=== PATIENT | male | born 1935 | race Caucasian/White ===

== ENCOUNTER 2017-04-26 22:59 | Emergency (ER) | payer MEDICARE ==
[2017-04-26] MEDS ORDERED: NS(*) 0.9% 1000 ML BAG 1,000 ML IV ONE (23:16)
--- NOTE | 2017-04-26 23:16 | ER Report ---
History and Physical Time Seen By MD: 23:11 Hx. of Stated Complaint: PT HAS RECTAL BLEEDING THAT STARTED LAST NIGHT. PT SAW SANDRA CENTENO TODAY TO DO BLOOD WORK. PT WOKE UP TO POOL OF BLOOD ON BED. HPI/ROS CHIEF COMPLAINT: Rectal bleeding HISTORY OF PRESENT ILLNESS: 82-year-old male presents ambulatory to the ER with a large pool of blood from his rectum tonight. Patient was seen earlier today by his primary care physician. He was referred for general surgery for colonoscopy. Blood work was drawn. His H&H was 17 and 49 Patient states he had a colonoscopy 5 years ago. There were a few polyps that were noted. Patient takes an baby aspirin a day. Patient notes a mild dizziness. On arrival he is noted be tachycardic at 122. Patient states a history of hemorrhoids. He's had no bleeding for 10 years. REVIEW OF SYSTEMS: Respiratory: No cough, no dyspnea. Cardiovascular: No chest pain, no palpitations. Gastrointestinal: As above Musculoskeletal: No back pain. Allergies: Coded Allergies: simvastatin (Verified Adverse Reaction, Mild, Muscle Pain, 04/26/17) Home Meds Active Scripts Omeprazole (OMEPRAZOLE) 20 Mg Capsule.dr, 1 CAP PO BID for 30 Days, #60 CAP 0 Refills Prov:SANDRA CENTENO DNP, CUSTOMER SUPPORT TECHNICIAN-BC 04/26/17 Reported Medications Doxylamine Succinate (SLEEP AID) 25 Mg Tablet, 0.5 TAB PO QHS 06/29/16 Melatonin (MELATONIN) 1 Mg Tablet, 1 MG PO QHS 06/29/16 Discontinued Reported Medications Aspirin (ASPIRIN) 81 Mg Tab.chew, 81 MG PO QDAY, TAB.CHEW 06/29/16 Past Medical/Surgical History Past Medical History Cardiovascular: Reports hx of: hyperlipidemia Hematology/oncology: Reports hx of: prostate cancer Past Surgical History Gastrointestinal: Reports hx of: hernia repair Genitourinary: Reports hx of: prostatectomy Musculoskeletal: Reports hx of: spinal surgery (herniated disc) Reviewed Nurses Notes: Yes Old Medical Records Reviewed: Yes Smoking Status: Never Smoker Hx Substance Use Disorder: No Hx Alcohol Use: No Constitutional Vital Sign - Last 24 Hours 04/26/17 04/26/17 04/26/17 04/26/17 23:05 23:06 23:13 23:14 Temp 97.5 Pulse 122 100 103 Resp 18 B/P (MAP) 143/99 143/99 (114) 117/83 (94) 117/83 (94) Pulse Ox 93 93 92 O2 Delivery Room Air Room Air 04/26/17 04/26/17 04/26/17 04/26/17 23:15 23:15 23:17 23:17 Pulse 114 124 B/P (MAP) 126/78 (94) 126/78 (94) 118/61 (80) 118/61 (80) Pulse Ox 94 94 O2 Delivery Room Air Room Air 04/26/17 04/26/17 04/26/17 04/26/17 23:30 23:44 23:45 23:59 Pulse 99 110 B/P (MAP) 122/82 (95) 121/79 (93) Pulse Ox 92 94 04/27/17 04/27/17 04/27/17 04/27/17 00:00 00:20 00:30 00:50 Pulse 106 109 B/P (MAP) 137/90 (106) 136/86 (103) Pulse Ox 93 96 Physical Exam Vital signs stable, orthostatics positive. Patient has increase of heart rate from 100-124 with standing BP remains the same at approximately 120 systolic General Appearance: The patient is alert, has no immediate need for airway protection and no current signs of toxicity. Skin warm, dry, pink, no acute distress HEENT: Pupils equal and round no injection. Oropharynx without redness or exudate Respiratory: Chest is non tender, lungs are clear to auscultation. Cardiac: regular rate and rhythm Gastrointestinal: Abdomen is soft and non tender, no masses, bowel sounds normal. Musculoskeletal: Neck: Neck is supple and non tender. No JVD, no lymphadenopathy Extremities have full range of motion and are non tender. Skin: No rashes or lesions. DIFFERENTIAL DIAGNOSIS: After history and physical exam differential diagnosis was considered for lower GI bleeding including but not limited to diverticulosis , tumor, AVM, hemorrhoid and anal fissure. Additionally, acute non-STEMI Medical Decision Making Data Points Result Diagram: 04/26/17232404/26/172324 Laboratory Hematology Test 04/26/17 23:25 Red Blood Count 4.75 M/uL (4.00-5.60) Mean Corpuscular Volume 92.1 fL (80.0-96.0) Mean Corpuscular Hemoglobin 32.2 pg (26.0-33.0) Mean Corpuscular Hemoglobin Concent 35.0 g/dL (32.0-36.0) Red Cell Distribution Width 13.6 % (11.5-14.5) Mean Platelet Volume 7.2 fL (7.2-11.1) Neutrophils (%) (Auto) 65.3 % (39.4-72.5) Lymphocytes (%) (Auto) 23.3 % (17.6-49.6) Monocytes (%) (Auto) 8.6 % (4.1-12.4) Eosinophils (%) (Auto) 1.7 % (0.4-6.7) Basophils (%) (Auto) 1.1 % (0.3-1.4) Nucleated RBC Relative Count (auto) 0.0 /100WBC Neutrophils # (Auto) 9.1 K/uL (2.0-7.4) Lymphocytes # (Auto) 3.3 K/uL (1.3-3.6) Monocytes # (Auto) 1.2 K/uL (0.3-1.0) Eosinophils # (Auto) 0.2 K/uL (0.0-0.5) Basophils # (Auto) 0.2 K/uL (0.0-0.1) Nucleated RBC Absolute Count (auto) 0.00 K/uL Prothrombin Time 13.6 seconds (12.0-14.4) Prothromb Time International Ratio 1.04 Activated Partial Thromboplast Time 29 seconds (23-35) Sodium Level 138 mmol/L (137-145) Potassium Level 3.8 mmol/L (3.5-5.0) Chloride Level 106 mmol/L (98-107) Carbon Dioxide Level 17 mmol/L (22-30) Blood Urea Nitrogen 16 mg/dl (9-21) Creatinine 1.00 mg/dl (0.66-1.25) Glomerular Filtration Rate Calc > 60.0 Random Glucose 138 mg/dl (75-110) Lactate 2.1 mmol/L (0.7-2.1) Calcium Level 9.0 mg/dl (8.4-10.2) Total Bilirubin 0.6 mg/dl (0.2-1.3) Aspartate Amino Transf (AST/SGOT) 64 U/L (0-35) Alanine Aminotransferase (ALT/SGPT) 30 U/L (0-56) Alkaline Phosphatase 71 U/L (0-126) Troponin I 6.400 ng/ml Total Protein 7.2 gm/dl (6.3-8.2) Albumin 3.8 g/dl (3.5-5.0) Amylase Level 82 U/L (0-110) Lipase 87 U/L (23-300) Chemistry Test 04/26/17 23:25 White Blood Count 14.0 k/uL (4.5-11.0) Red Blood Count 4.75 M/uL (4.00-5.60) Hemoglobin 15.3 g/dL (14.0-18.0) Hematocrit 43.7 % (42.0-52.0) Mean Corpuscular Volume 92.1 fL (80.0-96.0) Mean Corpuscular Hemoglobin 32.2 pg (26.0-33.0) Mean Corpuscular Hemoglobin Concent 35.0 g/dL (32.0-36.0) Red Cell Distribution Width 13.6 % (11.5-14.5) Platelet Count 281 K/uL (150-450) Mean Platelet Volume 7.2 fL (7.2-11.1) Neutrophils (%) (Auto) 65.3 % (39.4-72.5) Lymphocytes (%) (Auto) 23.3 % (17.6-49.6) Monocytes (%) (Auto) 8.6 % (4.1-12.4) Eosinophils (%) (Auto) 1.7 % (0.4-6.7) Basophils (%) (Auto) 1.1 % (0.3-1.4) Nucleated RBC Relative Count (auto) 0.0 /100WBC Neutrophils # (Auto) 9.1 K/uL (2.0-7.4) Lymphocytes # (Auto) 3.3 K/uL (1.3-3.6) Monocytes # (Auto) 1.2 K/uL (0.3-1.0) Eosinophils # (Auto) 0.2 K/uL (0.0-0.5) Basophils # (Auto) 0.2 K/uL (0.0-0.1) Nucleated RBC Absolute Count (auto) 0.00 K/uL Prothrombin Time 13.6 seconds (12.0-14.4) Prothromb Time International Ratio 1.04 Activated Partial Thromboplast Time 29 seconds (23-35) Glomerular Filtration Rate Calc > 60.0 Lactate 2.1 mmol/L (0.7-2.1) Calcium Level 9.0 mg/dl (8.4-10.2) Total Bilirubin 0.6 mg/dl (0.2-1.3) Aspartate Amino Transf (AST/SGOT) 64 U/L (0-35) Alanine Aminotransferase (ALT/SGPT) 30 U/L (0-56) Alkaline Phosphatase 71 U/L (0-126) Troponin I 6.400 ng/ml Total Protein 7.2 gm/dl (6.3-8.2) Albumin 3.8 g/dl (3.5-5.0) Amylase Level 82 U/L (0-110) Lipase 87 U/L (23-300) Coagulation Test 04/26/17 23:25 Prothrombin Time 13.6 seconds Prothromb Time International Ratio 1.04 Activated Partial Thromboplast Time 29 seconds EKG/Imaging EKG Interpretation 12 lead EK Rhythm: Sinus tachycardia, rate 110 bpm [place]: normal QRS: normal, old anterior Q waves, ST segments: No evidence of ischemia, there are no old EKGs for comparison Imaging Single view portable chest x-ray, no effusion, no infiltrate, normal mediastinum ED Course/Re-evaluation Clinical Indication for ER IV: Hydration, IV Access ED Course Patient was admitted to an examination room. H&P was done. The differential diagnoses was considered. On clinical examination. Patient is mildly orthostatic on evaluation. He is asymptomatic otherwise except slightly dizzy with standing. He's had no chest pain or shortness of breath. His EKG shows no evidence of acute ischemia. There appearing Q waves in V1 through V3. Patient's H&H has dropped from 17 and 49-15 and 43. He is treated with 1 L of normal saline IV. He takes a baby aspirin 81 mg per day. Unfortunately, his troponin returned elevated at 6.4. He's having acute ischemia. He'll be transferred to [facility] [place] so the mucosa monitored by cardiology along with hospitalist and GI. He needs a higher level of care than is available at our facility. 04/27/2017 12:19:13 am case was discussed with Dr. Javier hospitalist, and Dr. Farr cardiology at [facility] who accepted the patient for transfer to their facility. Decision to Disposition Date: Apr 26, 2017 Decision to Disposition Time: 23:53 Critical Care Time I spent a total of 60 minutes of critical care time in obtaining history, performing a physical exam, bedside monitoring of interventions, collecting and interpreting tests and discussion with consultants but not including time spent performing procedures. Depart Departure Latest Vital Signs Vital Signs Date Time Temp Pulse Resp B/P (MAP) Pulse Ox O2 Delivery O2 Flow Rate FiO2 04/27/17 00:50 109 96 04/27/17 00:30 136/86 (103) 04/26/17 23:17 Room Air 04/26/17 23:05 97.5 18 Impression: Primary Impression: Non-STEMI (non-ST elevated myocardial infarction) Additional Impressions: Lower GI bleed History of prostate cancer Condition: Improved Disposition: XFER TO ACUTE CARE HOSPITAL Referrals: SANDRA CENTENO DNP, CUSTOMER SUPPORT TECHNICIAN-BC (PCP) Problem Qualifiers JOHN GARCIA DO Apr 26, 2017 23:16
[2017-04-26 23:35] LABS: PLATELET COUNT, AUTOMATED 281 K/uL (150-450)
[2017-04-26 23:47] LABS: INR 1.04
--- NOTE | 2017-04-27 00:12 | EKG ---
FACILITY: [facility] [place] PATIENT NAME: BREN MATTSON : [id number] MR: [id number] V: [id number] EXAM DATE: ORDERING PHYSICIAN: JOHN GARCIA TECHNOLOGIST: SOO Test Reason : CARDIAC Blood Pressure : / mmHG Vent. Rate : 110 BPM Atrial Rate : 110 BPM P-R Int : 152 ms QRS Dur : 088 ms QT Int : 344 ms P-R-T Axes : 060 005 095 degrees QTc Int : 465 ms Sinus tachycardia Possible Left atrial enlargement Anterior infarct , age undetermined Abnormal ECG No previous ECGs available Confirmed by MARIIA LAGUNA ([id number]) on 04/27/2017 6:48:41 AM Referred By: Confirmed By:MARIIA LAGUNA
[2017-04-27] MEDS ORDERED: PANTOPRAZOLE SOD(*)40 MG VIAL 80 MG in NS(*) 0.9% 100 ML BAG 100 ML IVPB ONE (00:20)
[2017-04-27 00:30] VITALS: BP 136/86
--- NOTE | 2017-04-27 00:38 | RADIOLOGY IMAGING REPORT ---
FACILITY: [facility] [place] PATIENT NAME: Rubén [place] : 1935 MR: [id number] V: [id number] EXAM DATE: ORDERING PHYSICIAN: JOHN GARCIA TECHNOLOGIST: Location: [facility] [place] Patient: Rubén [place]orado : 1935 Visit/Account:[id number] Date of Sevice: 04/27/2017 PORTABLE CHEST: Indication: Chest pain. Technique: A single frontal film was obtained. Comparison: None. Skeletal and soft tissue structures: Intact and unremarkable. Heart and mediastinum: Within normal limits. Lung salazar: Well-expanded and clear. No evidence of vascular congestion. Pleural spaces: Unremarkable. Impression: No acute process. Report Dictated By: Benigno Sethi MD at 04/27/2017 12:31 AM Report E-Signed By: Benigno Sethi MD at 04/27/2017 12:33 AM WSN:[id number]
== END 2017-04-27 01:00 | disposition short-term general hospital (02) ==
LOC: ER 23:46
DX: I21.4 Non-ST elevation (NSTEMI) myocardial infarction (principal); K92.2 Gastrointestinal hemorrhage, unspecified; Z85.46 Personal history of malignant neoplasm of prostate
CPT/HCPCS: 71045; 82150; 83605; 83690; 84484; 85025; 85610; 85730; 93005; 96361; 96365; 99291; C9113; J7030; J7050; 82040; 82247; 82310; 82374; 82435; 82565; 82947; 84075; 84132; 84155; 84295; 84450; 84460; 84520; 99285

== ENCOUNTER → 2017-04-26 | Outpatient (CLI) | payer MEDICARE ==
[~2017-04-26] MED LIST: ASPI81TA94 PO; DOXY25TA11 PO; MELA1TAB23 PO; OMEP-125 PO
[2017-04-26 15:18] LABS: PLATELET COUNT, AUTOMATED 296 K/uL (150-450)
== END ==
LOC: LAB 14:53
PROVIDERS: ATTEND Nurse Practitioner Primary Care
DX: K92.1 Melena (principal); Z85.46 Personal history of malignant neoplasm of prostate
CPT/HCPCS: 36415; 82040; 82247; 82310; 82374; 82435; 82565; 82728; 82947; 83540; 83550; 84075; 84132; 84153; 84155; 84295; 84450; 84460; 84520; 85025

== ENCOUNTER → 2017-04-27 | Outpatient (CLI) | payer MEDICARE | LOC: AMB 00:46 | PROVIDERS: ATTEND Nurse Practitioner | DX: K92.2 Gastrointestinal hemorrhage, unspecified (principal); R53.1 Weakness | CPT/HCPCS: A0425; A0426 ==

== ENCOUNTER → 2017-05-04 | Outpatient (CLI) | payer MEDICARE ==
[2017-05-04 10:42] LABS: PLATELET COUNT, AUTOMATED 354 K/uL (150-450)
== END ==
LOC: LAB 10:23
PROVIDERS: ATTEND Nurse Practitioner Primary Care
DX: K92.2 Gastrointestinal hemorrhage, unspecified (principal)
CPT/HCPCS: 36415; 82040; 82247; 82310; 82374; 82435; 82565; 82947; 84075; 84132; 84155; 84295; 84450; 84460; 84520; 85025

== ENCOUNTER → 2017-05-26 | Outpatient (CLI) | payer MEDICARE ==
[2017-05-26 10:17] LABS: INR 1.01
== END ==
LOC: LAB 09:44
PROVIDERS: ATTEND Internal Medicine Cardiovascular Disease
DX: I21.4 Non-ST elevation (NSTEMI) myocardial infarction (principal)
CPT/HCPCS: 36415; 82310; 82374; 82435; 82565; 82947; 84132; 84295; 84520; 85027; 85610

== ENCOUNTER → 2017-05-27 | Outpatient (CLI) | payer MEDICARE ==
--- NOTE | 2017-05-27 10:51 | EKG ---
[place] [facility] [place] NAME: BREN MATTSON : [id number] MR: [id number] V: [id number] EXAM DATE: ORDERING PHYSICIAN: ARUN VELEZ TECHNOLOGIST: ALEK Test Reason : NSTEMI Blood Pressure : / mmHG Vent. Rate : 102 BPM Atrial Rate : 102 BPM P-R Int : 154 ms QRS Dur : 094 ms QT Int : 346 ms P-R-T Axes : 062 050 085 degrees QTc Int : 450 ms Sinus tachycardia Possible Left atrial enlargement Septal infarct (cited on or before 26-APR-2017) ST and T wave abnormality, consider lateral ischemia Abnormal ECG When compared with ECG of 26-APR-2017 23:17, Questionable change in initial forces of Anteroseptal leads T wave inversion more evident in Lateral leads Confirmed by ARUN VELEZ ([id number]) on 05/27/2017 12:12:00 PM Referred By: theo loredo Confirmed By:ARUN VELEZ
--- NOTE | 2017-05-27 10:53 | RADIOLOGY IMAGING REPORT ---
FACILITY: [facility] [place] PATIENT NAME: Rubén [place] : 1935 MR: [id number] V: [id number] EXAM DATE: ORDERING PHYSICIAN: REESE LAN TECHNOLOGIST: Location: [facility] Patient: Rubén [place] : 1935 Visit/Account:[id number] Date of Sevice: 05/27/2017 CHEST PA AND LAT Indication: Preoperative Comparison: Chest x-ray 04/27/2017. Findings: Lungs: Clear. Mediastinum/pulmonary vasculature: Heart size and pulmonary vasculature are normal. Bones/soft tissues: Normal. IMPRESSION: Clear lungs. Report Dictated By: Gerry Rowland at 05/27/2017 10:47 AM Report E-Signed By: Gerry Rowland at 05/27/2017 10:48 AM WSN:[id number]
== END ==
LOC: RAD 10:21
PROVIDERS: ATTEND Internal Medicine Cardiovascular Disease
DX: Z01.812 Encounter for preprocedural laboratory examination (principal); Z01.810 Encounter for preprocedural cardiovascular examination; R00.0 Tachycardia, unspecified; Q21.0 Ventricular septal defect; R94.30 Abnormal result of cardiovascular function study, unspecified; I21.4 Non-ST elevation (NSTEMI) myocardial infarction
CPT/HCPCS: 71046; 93005

== ENCOUNTER → 2017-06-10 | Outpatient (CLI) | payer MEDICARE ==
[~2017-06-10] MED LIST changes: +ENOX40DI9 SQ; +ENOX80DI10 SQ; +FURO-45 PO; +METO25TA91 PO; +POTA-23 PO; +PRAV40TA78 PO; +WARF1TAB15 PO; +WARF5TAB23 PO
== END ==
LOC: LAB 09:48
PROVIDERS: ATTEND Internal Medicine Cardiovascular Disease
DX: I23.6 Thrombosis of atrium, auricular appendage, and ventricle as current complications following acute myocardial infarction (principal); I50.22 Chronic systolic (congestive) heart failure
CPT/HCPCS: 36415; 82310; 82374; 82435; 82565; 82947; 84132; 84295; 84520; 85027

== ENCOUNTER → 2017-08-08 | Outpatient (CLI) | payer MEDICARE | LOC: LAB 09:29 | PROVIDERS: ATTEND Internal Medicine Cardiovascular Disease | DX: I50.9 Heart failure, unspecified (principal) | CPT/HCPCS: 36415; 82310; 82374; 82435; 82565; 82947; 84132; 84295; 84520 ==

== ENCOUNTER → 2017-10-24 | Outpatient (CLI) | payer MEDICARE ==
[~2017-10-24] MED LIST changes: +LISI-362 PO
[2017-10-24 10:31] LABS: INR 2.74
== END ==
LOC: LAB 10:12
PROVIDERS: ATTEND Internal Medicine
DX: Z51.81 Encounter for therapeutic drug level monitoring (principal)
CPT/HCPCS: 36415; 85610

== ENCOUNTER → 2017-11-15 | Outpatient (CLI) | payer MEDICARE ==
[2017-11-15 10:32] LABS: INR 2.22
== END ==
LOC: LAB 09:56
PROVIDERS: ATTEND Nurse Practitioner Primary Care
DX: I25.10 Atherosclerotic heart disease of native coronary artery without angina pectoris (principal)
CPT/HCPCS: 36415; 85610

== ENCOUNTER → 2017-12-23 | Outpatient (CLI) | payer MEDICARE ==
[2017-12-23 11:28] LABS: INR 2.49
== END ==
LOC: LAB 11:09
PROVIDERS: ATTEND Nurse Practitioner Primary Care
DX: I25.10 Atherosclerotic heart disease of native coronary artery without angina pectoris (principal)
CPT/HCPCS: 36415; 85610

== ENCOUNTER → 2018-02-06 | Outpatient (RCR) | payer MEDICARE ==
[2017-11-08 15:05] VITALS: BP 130/82
[2017-11-08 15:06] VITALS: BP 112/70
--- NOTE | 2017-11-08 15:39 | CARDIAC REHAB PLAN OF CARE ---
Physician: aMry Tabor NP Patient is being seen: Rin De La Garza Medical Diagnosis: CHF; CAD; ICD Date of Onset: 10/27/17 Date of Initial Evaluation: 11/08/17 INTERVENTIONS: Due Date: 12/09/17 Short Term Goals: Patient Assessment: Patient is an 82yr old male who comes to cardiac rehab following ICD placement on 10/27/17. He has a history of a NSTEMI, the date of which he is unaware, and has been diagnosed with pulmonary hypertension and CHF. His LVEF is 20-25%. Exercise Assessment: During his 6-Minute Walk Test the patient walked a total of 1500ft for an average speed of 2.8mph. He did not report any discomfort, angina, or shortness of breath during the test. ECG was sinus tachycardia with a HR between 108-113bpm. SPO2 remained above 91% and RPE was reported 3-4. For exercise equipment, the patient chose both the upright stationary bike and NuStep. HR remained between 110-120bpm with ECG in sinus tachycardia. SPO2 remained above 92% and RPE was reported at 3 on both machines. BP response was normal, increasing to 132/78. No discomfort was reported by the patient. METS reported at 3.5 on average. Exercise Plan: Goals: Our goals are to help promote healthy behavior change via increasing structured exercise volume and leisure time activity. By the end of the 3 month program the patient will aim to be exercising at cardiac rehab 3 days/week (MWF) for at least 45 minutes/session of moderate intensity cardiovascular activity. His goal will be to reach 5.5 METs on average or higher. Our other goal will be to increase leisure time activity (currently walking ~1 mile a few days/week) by increasing walking time at home and or using his stationary bike at home on days off. Exercise Prescription: Mode: Upright stationary bike and NuStep Frequency: 3 days/week (MWF) Duration: Patient will start exercising for 30 minutes on average per session Intensity: THR 110-120bpm; METs 3.5 Education: Education will be aimed towards the importance of gradual progression for increasing overall physical fitness as well as increasing intensity during leisure time activities at home Exercise Reassessment (Date: ): Exercise Discharge/Follow-Up (Date: ): Nutrition Assessment: Patient reports eating a relatively healthy diet (his does most of the cooking). His diet is low in refined carbohydrates and high in lean meats and vegetables. He eats oatmeal regularly and eats fish on average 2 days/week. Nutrition Plan: Goals: Our goals are to maintain healthy habits and help educate the patient on the importance of healthy fats and whole grains as part of a well-rounded diet. Intervention: Intervention will include providing education and frequent conversation about healthy dietary changes. Education: Education will focus on healthy recipes and nutritional guideline information Nutrition Reassessment (Date: ): Nutrition Discharge/Follow-Up (Date: ): Psychosocial Assessment: While the patient does not meet the criteria for moderate level depression or anxiety according to the Hospital Anxiety and Depression Scale (HADS) I do perceive that he is at risk for developing such qualities. He does report worrying frequently and rather restless. While he does report that this has significantly lessened over the past year, it is apparent in his mannerisms and self-reports. Psychosocial Plan: Goals: Our goals are help the patient become self-aware of his stress levels and help him discover a healthy way to cope and manage when stressful times arise. He appears to have a strong support system at home so it would be best if we could assist this with the help of his and children here in town. Intervention: Our intervention will first start with regular conversations to see where his stress levels are and to see his cognitive awareness of it. We will also help him to pin point what exactly is causing such stress and help him address those areas through coping and management methods. Lastly, we will continuously be a strong support system for him, helping to point out the optimistic and improvements seen while he attends cardiac rehab. Education: Education will focus on stress relieving methods and positivity. Psychosocial Reassessment (Date: ): Psychosocial Discharge/Follow-Up (Date: ): Physician Signature: Date: MTDD
[2017-11-14 17:51] VITALS: BP 104/68
[2017-11-14 17:52] VITALS: BP 94/60
[2017-11-23 13:18] VITALS: BP_SYST 102; BP_SYST 104; BP_DIAS 64
[2017-11-25 17:10] VITALS: BP 98/64
[2017-11-25 17:11] VITALS: BP 100/60
[2017-11-28 17:21] VITALS: BP 122/82
[2017-11-28 17:22] VITALS: BP 90/58
--- NOTE | 2017-12-06 12:47 | CARDIAC REHAB PLAN OF CARE ---
Physician: Mary Tabor NP Patient is being seen: Rin De La Garza Medical Diagnosis: CHF; CAD; ICD Date of Onset: 10/27/17 Date of Initial Evaluation: 11/08/17 Date patient was last seen: 11/28/17 Number of treatments: 5 Number of cancellations/No Shows: 7 INTERVENTIONS: Due Date: 01/06/18 Patient Assessment: Patient is an 82yr old male who comes to cardiac rehab following ICD placement on 10/27/17. He has a history of a NSTEMI, the date of which he is unaware, and has been diagnosed with pulmonary hypertension and CHF. His LVEF is 20-25%. Exercise Assessment: During his 6-Minute Walk Test the patient walked a total of 1500ft for an average speed of 2.8mph. He did not report any discomfort, angina, or shortness of breath during the test. ECG was sinus tachycardia with a HR between 108-113bpm. SPO2 remained above 91% and RPE was reported 3-4. For exercise equipment, the patient chose both the upright stationary bike and NuStep. HR remained between 110-120bpm with ECG in sinus tachycardia. SPO2 remained above 92% and RPE was reported at 3 on both machines. BP response was normal, increasing to 132/78. No discomfort was reported by the patient. METS reported at 3.5 on average. Exercise Plan: Goals: Our goals are to help promote healthy behavior change via increasing structured exercise volume and leisure time activity. By the end of the 3 month program the patient will aim to be exercising at cardiac rehab 3 days/week (MWF) for at least 45 minutes/session of moderate intensity cardiovascular activity. His goal will be to reach 5.5 METs on average or higher. Our other goal will be to increase leisure time activity (currently walking ~1 mile a few days/week) by increasing walking time at home and or using his stationary bike at home on days off. Exercise Prescription: Mode: Upright stationary bike and NuStep Frequency: 3 days/week (MWF) Duration: Patient will start exercising for 30 minutes on average per session Intensity: THR 110-120bpm; METs 3.5 Education: Education will be aimed towards the importance of gradual progression for increasing overall physical fitness as well as increasing intensity during leisure time activities at home Exercise Reassessment (Date: 12/06/17): The patient has not been consistent with regular cardiac rehab attendance. He has only attended 5 sessions in the past month. However, during the sessions he does attend he has been able to achieve a progression in total duration of exercise. He began with 20 minutes of exercise and has not progressed to averaging 35+ minutes per session. His has achieved the low end of his THR, with his average HR range being 93-110bpm. He has also maintained his initial intensity with METs on average between 3.3- 3.6 METs. Despite the inconsistency with exercise attendance, the patient has shown stability in his fitness via intensity and some degree of understanding progression with his increase in duration. For the next month our primary goal will be to encourage regular attendance to the patients exercise session. If we could get him to come to at least 2/3 of his session this would be a great accomplishment. During these sessions we will keep him on track to maintain his duration progression while simultaneously very slowly increasing intensity. Goals be the end of next month include 40+ mintues of continuous exercise, with an average THR of 100-115bpm, and MET levels between 3.5-4.0 METs. Exercise Discharge/Follow-Up (Date: ): Nutrition Assessment: Patient reports eating a relatively healthy diet (his does most of the cooking). His diet is low in refined carbohydrates and high in lean meats and vegetables. He eats oatmeal regularly and eats fish on average 2 days/week. Nutrition Plan: Goals: Our goals are to maintain healthy habits and help educate the patient on the importance of healthy fats and whole grains as part of a well-rounded diet. Intervention: Intervention will include providing education and frequent conversation about healthy dietary changes. Education: Education will focus on healthy recipes and nutritional guideline information Nutrition Reassessment (Date: 12/06/17): No information to update. Patient has not attend sessions frequently enough for us to perform an adequate assessment of his nutrition behavior change. Nutrition Discharge/Follow-Up (Date: ): Psychosocial Assessment: While the patient does not meet the criteria for moderate level depression or anxiety according to the Hospital Anxiety and Depression Scale (HADS) I do perceive that he is at risk for developing such qualities. He does report worrying frequently and rather restless. While he does report that this has significantly lessened over the past year, it is apparent in his mannerisms and self-reports. Psychosocial Plan: Goals: Our goals are help the patient become self-aware of his stress levels and help him discover a healthy way to cope and manage when stressful times arise. He appears to have a strong support system at home so it would be best if we could assist this with the help of his and children here in town. Intervention: Our intervention will first start with regular conversations to see where his stress levels are and to see his cognitive awareness of it. We will also help him to pin point what exactly is causing such stress and help him address those areas through coping and management methods. Lastly, we will continuously be a strong support system for him, helping to point out the optimistic and improvements seen while he attends cardiac rehab. Education: Education will focus on stress relieving methods and positivity. Psychosocial Reassessment (Date: 12/06/17): Again, no information to report on psychosocial change. The patient has not attend enough sessions for us to perceive any changes, or for him to necessarily receive physiological benefits from exercise that have been shown to aid psychosocial behavior. Psychosocial Discharge/Follow-Up (Date: ): Physician Signature: Date: MTDD
[2017-12-07 13:29] VITALS: BP_SYST 100; BP_SYST 120; BP_DIAS 58; BP_DIAS 62
[2017-12-09 17:59] VITALS: BP 104/62
[2017-12-09 18:00] VITALS: BP 92/58
[2017-12-12 16:55] VITALS: BP_SYST 110; BP_DIAS 66; BP_DIAS 95
[2017-12-14 17:21] VITALS: BP 116/68
[2017-12-14 17:22] VITALS: BP 102/62
[2017-12-16 13:14] VITALS: BP 106/62
[2017-12-16 13:15] VITALS: BP 108/60
[2017-12-19 13:09] VITALS: BP 106/66
[2017-12-19 13:10] VITALS: BP 106/58
[2017-12-23 17:54] VITALS: BP 112/76
[2017-12-23 17:55] VITALS: BP 94/64
[2018-01-02 13:30] VITALS: BP_SYST 108; BP_SYST 96; BP_DIAS 62
[2018-01-04 12:52] VITALS: BP_SYST 100; BP_SYST 94; BP_DIAS 62
--- NOTE | 2018-01-04 15:19 | CARDIAC REHAB PLAN OF CARE ---
Physician: Mary Tabor NP Patient is being seen: Rin De La Garza Medical Diagnosis: CHF; CAD; ICD Date of Onset: 10/27/17 Date of Initial Evaluation: 11/08/17 Date patient was last seen: 01/04 Number of treatments: 15 Number of cancellations/No Shows: 9 INTERVENTIONS: Due Date: 02/03/18 Patient Assessment: Patient is an 82yr old male who comes to cardiac rehab following ICD placement on 10/27/17. He has a history of a NSTEMI, the date of which he is unaware, and has been diagnosed with pulmonary hypertension and CHF. His LVEF is 20-25%. Exercise Assessment: During his 6-Minute Walk Test the patient walked a total of 1500ft for an average speed of 2.8mph. He did not report any discomfort, angina, or shortness of breath during the test. ECG was sinus tachycardia with a HR between 108-113bpm. SPO2 remained above 91% and RPE was reported 3-4. For exercise equipment, the patient chose both the upright stationary bike and NuStep. HR remained between 110-120bpm with ECG in sinus tachycardia. SPO2 remained above 92% and RPE was reported at 3 on both machines. BP response was normal, increasing to 132/78. No discomfort was reported by the patient. METS reported at 3.5 on average. Exercise Plan: Goals: Our goals are to help promote healthy behavior change via increasing structured exercise volume and leisure time activity. By the end of the 3 month program the patient will aim to be exercising at cardiac rehab 3 days/week (MWF) for at least 45 minutes/session of moderate intensity cardiovascular activity. His goal will be to reach 5.5 METs on average or higher. Our other goal will be to increase leisure time activity (currently walking ~1 mile a few days/week) by increasing walking time at home and or using his stationary bike at home on days off. Exercise Prescription: Mode: Upright stationary bike and NuStep Frequency: 3 days/week (MWF) Duration: Patient will start exercising for 30 minutes on average per session Intensity: THR 110-120bpm; METs 3.5 Education: Education will be aimed towards the importance of gradual progression for increasing overall physical fitness as well as increasing intensity during leisure time activities at home Exercise Reassessment (Date: 12/06/17): The patient has not been consistent with regular cardiac rehab attendance. He has only attended 5 sessions in the past month. However, during the sessions he does attend he has been able to achieve a progression in total duration of exercise. He began with 20 minutes of exercise and has not progressed to averaging 35+ minutes per session. His has achieved the low end of his THR, with his average HR range being 93-110bpm. He has also maintained his initial intensity with METs on average between 3.3- 3.6 METs. Despite the inconsistency with exercise attendance, the patient has shown stability in his fitness via intensity and some degree of understanding progression with his increase in duration. For the next month our primary goal will be to encourage regular attendance to the patients exercise session. If we could get him to come to at least 2/3 of his session this would be a great accomplishment. During these sessions we will keep him on track to maintain his duration progression while simultaneously very slowly increasing intensity. Goals be the end of next month include 40+ mintues of continuous exercise, with an average THR of 100-115bpm, and MET levels between 3.5-4.0 METs. Exercise Reassessment (Date: 12/04/17): The patient has been much more regular with his attendance in cardiac rehab. He has attended 10/12 of his recent sessions. During his sessions he averages 40+ minutes of aerobic work at 4.2- 4.8 METs. His heart rate ranges between 95-115bpm. This is great progress overall. Next month our goals will be to continue this progression with the following increases: Frequency: 3 days/week (MWF) with a goal of 90% adherence. Mode: NuStep and Upright Bike Duration: 40+ minutes/session. Intensity: THR 110-120bpm; goal by the end of the month of 5.2 METs on average Exercise Discharge/Follow-Up (Date: ): Nutrition Assessment: Patient reports eating a relatively healthy diet (his does most of the cooking). His diet is low in refined carbohydrates and high in lean meats and vegetables. He eats oatmeal regularly and eats fish on average 2 days/week. Nutrition Plan: Goals: Our goals are to maintain healthy habits and help educate the patient on the importance of healthy fats and whole grains as part of a well-rounded diet. Intervention: Intervention will include providing education and frequent conversation about healthy dietary changes. Education: Education will focus on healthy recipes and nutritional guideline information Nutrition Reassessment (Date: 12/06/17): No information to update. Patient has not attend sessions frequently enough for us to perform an adequate assessment of his nutrition behavior change. Nutrition Reassessment: (Date: 01/04/18) No new information. Patient has been given information pertaining to healthy holiday eating. Nutrition Discharge/Follow-Up (Date: ): Psychosocial Assessment: While the patient does not meet the criteria for moderate level depression or anxiety according to the Hospital Anxiety and Depression Scale (HADS) I do perceive that he is at risk for developing such qualities. He does report worrying frequently and rather restless. While he does report that this has significantly lessened over the past year, it is apparent in his mannerisms and self-reports. Psychosocial Plan: Goals: Our goals are help the patient become self-aware of his stress levels and help him discover a healthy way to cope and manage when stressful times arise. He appears to have a strong support system at home so it would be best if we could assist this with the help of his and children here in town. Intervention: Our intervention will first start with regular conversations to see where his stress levels are and to see his cognitive awareness of it. We will also help him to pin point what exactly is causing such stress and help him address those areas through coping and management methods. Lastly, we will continuously be a strong support system for him, helping to point out the optimistic and improvements seen while he attends cardiac rehab. Education: Education will focus on stress relieving methods and positivity. Psychosocial Reassessment (Date: 12/06/17): Again, no information to report on psychosocial change. The patient has not attend enough sessions for us to perceive any changes, or for him to necessarily receive physiological benefits from exercise that have been shown to aid psychosocial behavior. Psychosocial Reassessment (Date: 01/04/18): Patient has been much more regular with his exercise session and reports that they do help him feel overall more energetic. Psychosocial Discharge/Follow-Up (Date: ): Physician Signature: Date: MTDD
[2018-01-06 18:01] VITALS: BP 102/62
[2018-01-06 18:02] VITALS: BP 100/62
[2018-01-09 16:55] VITALS: BP 104/60
[2018-01-09 16:56] VITALS: BP 98/58
[2018-01-11 18:01] VITALS: BP 100/62
[2018-01-11 18:02] VITALS: BP 98/60
[2018-01-13 13:05] VITALS: BP 118/74
[2018-01-13 13:06] VITALS: BP 112/70
[2018-01-16 13:00] VITALS: BP 108/68
[2018-01-18 13:07] VITALS: BP 100/60
[2018-01-18 13:09] VITALS: BP 108/60
[2018-01-23 17:22] VITALS: BP 118/64
[2018-01-23 17:24] VITALS: BP 98/58
[2018-01-25 13:00] VITALS: BP 118/66
[2018-01-25 13:03] VITALS: BP 104/68
[2018-01-27 13:22] VITALS: BP 104/62
[2018-01-27 13:23] VITALS: BP 96/52
[2018-02-01 12:56] VITALS: BP 104/62
[2018-02-01 12:57] VITALS: BP 96/52
[2018-02-03 13:02] VITALS: BP 104/68
[2018-02-03 13:03] VITALS: BP 90/60
[2018-02-06 12:56] VITALS: BP 114/62
[2018-02-06 12:57] VITALS: BP 98/60
== END ==
LOC: CARD 11-08 13:00
PROVIDERS: ATTEND Nurse Practitioner Primary Care
DX: I25.2 Old myocardial infarction (principal); I50.9 Heart failure, unspecified; I25.10 Atherosclerotic heart disease of native coronary artery without angina pectoris; I27.0 Primary pulmonary hypertension; Z95.810 Presence of automatic (implantable) cardiac defibrillator; Z87.891 Personal history of nicotine dependence
CPT/HCPCS: 93798

== ENCOUNTER 2018-03-03 10:00 | Outpatient (RCR) | payer MEDICARE ==
[2018-02-08 16:27] VITALS: BP 104/64
[2018-02-08 16:29] VITALS: BP 100/70
--- NOTE | 2018-02-09 08:42 | CARDIAC REHAB PLAN OF CARE ---
Physician: Mary Tabor NP Patient is being seen: Rin De La Garza Medical Diagnosis: CHF; CAD; ICD Date of Onset: 10/27/17 Date of Initial Evaluation: 11/08/17 Date patient was last seen: 02/08/18 Number of treatments: 28 Number of cancellations/No Shows: 9 INTERVENTIONS: Due Date: 03/12/18 Exericse Reassessment (Date: 02/09/18): The patient has attended 100% of this past months sessions--showing great improvement in his motivation and consistency. He continues to do well in his duration (40 minutes on average) and reaching his THR (averaging HR between 102-118bpm). However, he has not incrased his intensity--he remains at 4.5 METs both NuStep and Bike and goes roughly the same distance each session as well. Our goal this last month prior to the patient being discharge is to help him increase his intensity via MET level and increasing the distance covered during the same exercise duration. We will start by aiming for at least 5.0 METs and 4.0 miles covered on the bike in 20 minutes and 1200 steps taken on the NuStep in 20 minutes. The patient did set a goal for the to keep his HR above 110bpm for the entirety of his exercise sessions, which is a very well set and attainable goal for him. Nutrition Reassessment (Date: 02/09/18): With the holiday and impending the patient became much more willing to discuss nutrition and healthy alternatives. Healthy holiday eating habits were discussed prior to the [facility]. The patient has been asked to set a new nutrition goal for the , but has yet to accomplish this. Psychosocial Reassessment (Date: 02/09/18): Patient reports thoroughly enjoying the exercise he has been incorporating, stating it has helped him increase his overall energy. Physician Signature: Date: MTDD
[2018-02-10 12:16] VITALS: BP_SYST 116; BP_DIAS 60; BP_DIAS 70
[2018-02-13 12:51] VITALS: BP_SYST 110; BP_SYST 120; BP_DIAS 66; BP_DIAS 82
[2018-02-15 12:07] VITALS: BP 112/60
[2018-02-17 13:07] VITALS: BP 102/62
[2018-02-17 13:09] VITALS: BP 98/68
[2018-02-22 13:06] VITALS: BP 102/64
[2018-02-22 13:07] VITALS: BP 92/52
[2018-02-27 13:34] VITALS: BP 114/78
[2018-02-27 13:36] VITALS: BP 118/74
[2018-03-01 13:25] VITALS: BP_SYST 112; BP_SYST 118; BP_DIAS 70; BP_DIAS 76
[2018-03-04 11:04] VITALS: BP 104/74
[2018-03-04 11:07] VITALS: BP 110/92
--- NOTE | 2018-03-07 08:37 | CARDIAC REHAB PLAN OF CARE ---
Physician: Mary Tabor NP Patient is being seen: Rin De La Garza Medical Diagnosis: CHF; ICD Date of Onset: 10/27/17 Date of Initial Evaluation: 11/08/17 Date patient was last seen: 03/06/18 Number of treatments: 36 Number of cancellations/No Shows: 7 INTERVENTIONS: Date: 03/07/18 Exercise Discharge/Follow-Up (Date: 03/07/18): Over the course of the 36 visit program, the patient has become much more regular in his exercise attendancecompleting in approximately 3.5 months. He increased his exercise tolerance significantly, by increasing his overall THR (by 20bpm) and MET level (going from 3.3 METs on average at the beginning to finishing at 4.7 METs). The patient reports that this regular physical activity has helped him sleep better and retain higher levels of energy. He is highly motivated to continue exercising and plans to attend Phase III Rehab. Nutritional Discharge/Follow-Up (Date: 03/07/18): The patient has successfully maintained a healthy weight and nutritional habits through the course of his cardiac rehabilitation. It is likely that he will continue on this healthy path as it is a well-established behavior at this time in his life. Psychosocial Discharge/Follow-Up (Date: 03/07/18): The patient has significantly decreased his depression level according to the Hospital Anxiety and Depression Scale (HADS) assessment. Initially he began the program with a level of 6/21 and now finishes the program with a level of 2/21. This psychological change is evident in the patients self-reporting of better mood, energy, and sleep since he started exercising regularly. He has maintained a positive affect and motivation through the program. Physician Signature: Date: MTDD
[2018-03-08] MEDS ORDERED: COLC0.6C3 PO (15:15)
[2018-03-08] MEDS ORDERED: ALLO100T70 PO (15:15)
== END 2018-03-03 18:00 | disposition home or self-care (01) ==
LOC: CARD 10:00
PROVIDERS: ATTEND Nurse Practitioner Primary Care
DX: I50.22 Chronic systolic (congestive) heart failure (principal); I25.5 Ischemic cardiomyopathy; Z95.810 Presence of automatic (implantable) cardiac defibrillator
CPT/HCPCS: 93798

== ENCOUNTER → 2018-03-08 | Outpatient (CLI) | payer MEDICARE ==
[~2018-03-08] MED LIST changes: +ALLO100T70 PO; +COLC0.6C3 PO
[2018-03-08 15:24] LABS: INR 2.87
== END ==
LOC: LAB 14:59
PROVIDERS: ATTEND Internal Medicine
DX: M10.9 Gout, unspecified (principal); I25.10 Atherosclerotic heart disease of native coronary artery without angina pectoris
CPT/HCPCS: 36415; 84550; 85610

== ENCOUNTER → 2018-04-27 | Outpatient (CLI) | payer MEDICARE ==
[~2018-04-27] MED LIST changes: +SPIR25TA80 PO
== END ==
LOC: LAB 08:46
PROVIDERS: ATTEND Internal Medicine Cardiovascular Disease
DX: I50.9 Heart failure, unspecified (principal); I25.10 Atherosclerotic heart disease of native coronary artery without angina pectoris
CPT/HCPCS: 36415; 82040; 82247; 82310; 82374; 82435; 82465; 82565; 82947; 83718; 84075; 84132; 84155; 84295; 84450; 84460; 84478; 84520

== ENCOUNTER → 2018-04-27 | Outpatient (REF) | payer MEDICARE ==
[2018-04-27 09:23] LABS: INR 2.59
== END ==
LOC: LAB 09:11
PROVIDERS: ATTEND Nurse Practitioner Primary Care
DX: I25.10 Atherosclerotic heart disease of native coronary artery without angina pectoris (principal); M10.9 Gout, unspecified
CPT/HCPCS: 84550; 85610

== ENCOUNTER → 2018-05-24 | Outpatient (CLI) | payer MEDICARE ==
[~2018-05-24] MED LIST changes: +ALLO-2 PO; +PNEU0.5D3 IM
[2018-05-24 11:26] LABS: INR 2.21
== END ==
LOC: LAB 11:07
PROVIDERS: ATTEND Nurse Practitioner Primary Care
DX: M10.9 Gout, unspecified (principal); Z79.01 Long term (current) use of anticoagulants
CPT/HCPCS: 36415; 84550; 85610

== ENCOUNTER → 2018-06-27 | Outpatient (CLI) | payer MEDICARE ==
[2018-06-27 11:23] LABS: INR 2.79
== END ==
LOC: LAB 11:00
PROVIDERS: ATTEND Nurse Practitioner Primary Care
DX: M10.9 Gout, unspecified (principal); Z79.01 Long term (current) use of anticoagulants
CPT/HCPCS: 36415; 84550; 85610

== ENCOUNTER → 2018-08-24 | Outpatient (CLI) | payer MEDICARE ==
[~2018-08-24] MED LIST changes: -OMEP-125 PO; +OMEP-126 PO
[2018-08-24 11:00] LABS: INR 3.03
== END ==
LOC: LAB 10:29
PROVIDERS: ATTEND Nurse Practitioner Primary Care
DX: Z51.81 Encounter for therapeutic drug level monitoring (principal); Z79.01 Long term (current) use of anticoagulants
CPT/HCPCS: 36415; 85610

== ENCOUNTER → 2018-09-14 | Outpatient (CLI) | payer MEDICARE | LOC: LAB 10:46 | PROVIDERS: ATTEND Internal Medicine Cardiovascular Disease | DX: I50.22 Chronic systolic (congestive) heart failure (principal); I25.10 Atherosclerotic heart disease of native coronary artery without angina pectoris | CPT/HCPCS: 36415; 82310; 82374; 82435; 82565; 82947; 84132; 84295; 84520 ==